=== PATIENT | female | born 1955 | race Caucasian/White ===

== ENCOUNTER 2018-05-13 17:28 | Emergency (ER) | payer MEDICARE, MEDICAID ==
[~2018-05-13] VITALS: Ht 154.9 cm; Wt 85.0 kg
--- NOTE | 2018-05-13 17:42 | NUR ---
Case no. from [facility]: [id number]
[2018-05-13] MEDS ORDERED: HYDROcodone/acetaminophen 5mg/325mg tablet PO ONE (18:45)
[2018-05-13] MEDS ORDERED: cyclobenzaprine 10mg tablet PO ONE (18:45)
--- NOTE | 2018-05-13 18:54 | NUR ---
soft c collar placed per order
[2018-05-13 20:08] VITALS: BP 179/84
== END 2018-05-13 20:10 | disposition home or self-care (01) ==
LOC: ER 17:29
DX: S16.1XXA Strain of muscle, fascia and tendon at neck level, initial encounter (principal); S00.01XA Abrasion of scalp, initial encounter; Z88.6 Allergy status to analgesic agent; Y09 Assault by unspecified means; Y93.89 Activity, other specified; Y92.89 Other specified places as the place of occurrence of the external cause; Y99.8 Other external cause status
CPT/HCPCS: 72040; 99283